=== PATIENT | female | born 1960 | race Caucasian/White ===

== ENCOUNTER → 2016-10-09 | Outpatient (CLI) | payer OTHER ==
--- NOTE | 2016-10-09 14:28 | DI ---
LEFT FOOT, 10/09/2016 1:53 PM: Clinical History: Hallux valgus of the left foot. Previous Exam: 09/03/2016. 3 weightbearing views are submitted. The patient is status post osteotomies of the first metatarsal b one and the proximal phalanx of the great toe. The osteotomy site still demonstrate lucencies. On the lateral weight-bearing view, the distal osteotomy fragment is displaced toward the plantar direction by approximately 5 mm and this is unchanged from the previous exam. No callus formation is noted. A bunionectomy has been performed. Reading: Status post bunionectomy and osteotomies of the first metatarsal bone in the proximal phalanx of the great toe. There has been no change in alignment and position. No callus formation is identified.
== END ==
LOC: MOB RAD 13:57
PROVIDERS: ATTEND Podiatrist Foot & Ankle Surgery
DX: Z47.89 Encounter for other orthopedic aftercare (principal); M20.12 Hallux valgus (acquired), left foot; Z98.890 Other specified postprocedural states
CPT/HCPCS: 73630